=== PATIENT | male | born 1995 | race African-American/Black ===

== ENCOUNTER 2019-07-06 12:20 | Emergency (ER) | payer MEDICAID ==
[~2019-07-06] VITALS: Ht 172.7 cm; Wt 61.0 kg
[2019-07-06] MEDS ORDERED: ONDANSETRON HCL 4MG TABLET PO ONE (13:15)
[2019-07-06 13:23] LABS: HEMATOCRIT. 44.3 % (42.0-52.0); HEMOGLOBIN. 14.6 g/dL (14.0-18.0); MEAN CORPUSCULAR HEMOGLOBIN 28.8 pg (28.0-32.0); MEAN CORPUSCULAR VOLUME 87.1 fL (80.0-94.0); RED BLOOD CELL COUNT 5.09 mill/uL (4.7-6.1); RED CELL DISTRIBUTION WIDTH 13.6 % (11.6-14.6)
[2019-07-06 13:30] LABS: CHLORIDE 104 mEq/L (98-107)
[2019-07-06 13:32] LABS: INR 1.1; PROTHROMBIN TIME 11.9 sec (9.6-11.0)
[2019-07-06 13:35] LABS: ETHANOL BLOOD < 10 mg/dL
[2019-07-06 13:36] LABS: PLATELET 157 x1000/uL (130-400)
[2019-07-06 13:38] LABS: PLATELET ESTIMATE NORMAL
[2019-07-06] MEDS ORDERED: MORPHINE SULFATE 4 MG/ML CPJ (NOT FOR IM USE) IV STA (14:09)
[2019-07-06] MEDS ORDERED: SODIUM CHLORIDE 0.9% 1,000 ML IV ONE (14:09)
[2019-07-06] MEDS ORDERED: METOCLOPRAMIDE HCL 10MG/2ML VIAL IV ONE (14:15)
[2019-07-06 16:44] VITALS: BP 133/78
== END 2019-07-06 16:48 | disposition home or self-care (01) ==
LOC: ER 12:32
DX: R10.13 Epigastric pain (principal); R11.2 Nausea with vomiting, unspecified
CPT/HCPCS: 36415; 74176; 80053; 80320; 83690; 85025; 85610; 96361; 96374; 96375; 99284; J2270; J2765; J7030; Q0162; G0480

== ENCOUNTER 2020-09-07 05:50 | Emergency (ER) | payer MEDICAID ==
[~2020-09-07] VITALS: Ht 180.3 cm; Wt 70.0 kg
[2020-09-07] MEDS ORDERED: ACETAMINOPHEN 325MG TABLET PO ONE (06:45)
[2020-09-07] MEDS ORDERED: TOPUD PO (07:05)
[2020-09-07 07:12] VITALS: BP 121/71
== END 2020-09-07 07:14 | disposition home or self-care (01) ==
LOC: ER 05:50
DX: M25.551 Pain in right hip (principal)
CPT/HCPCS: 73502; 99283